=== PATIENT | female | born 1945 | race Caucasian/White ===

== ENCOUNTER 2017-11-13 02:26 | Inpatient (IN) | payer MEDICARE, BC ==
[~2017-11-13] VITALS: Ht 162.6 cm; Wt 96.2 kg
[2017-11-13] MEDS ORDERED: MAG HYDROX/AL HYDROX/SIMETH 30 ML UDC PO PRN (03:00)
[2017-11-13] MEDS ORDERED: MAGNESIUM HYDROXIDE 30 ML UDC PO PRN (03:00)
[2017-11-13] MEDS ORDERED: ACETAMINOPHEN 325 MG TABLET PO PRN (03:00)
[2017-11-13] MEDS ORDERED: FLUR15CA14 (03:14)
[2017-11-13] MEDS ORDERED: AMOX500C2 (03:14)
[2017-11-13] MEDS ORDERED: ARIP5TAB20 PO (03:14)
[2017-11-13] MEDS ORDERED: EZET10TA27 PO (03:14)
[2017-11-13] MEDS ORDERED: CIPR500T5 (03:14)
[2017-11-13] MEDS ORDERED: LEVO50TA8 PO (03:14)
[2017-11-13] MEDS ORDERED: ALBU18HF2 IH (03:14)
[2017-11-13] MEDS ORDERED: IBUP-1955 PO (03:14)
[2017-11-13] MEDS ORDERED: CYCL10TA9 PO (03:14)
[2017-11-13] MEDS ORDERED: DOXY100T2 (03:14)
[2017-11-13] MEDS ORDERED: OSEL75CA18 (03:14)
[2017-11-13] MEDS ORDERED: SITA1TAB6 PO (03:14)
[2017-11-13] MEDS ORDERED: BENZ-38 PO (03:14)
[2017-11-13] MEDS ORDERED: METF500T4 PO (03:15)
[2017-11-13 04:13] VITALS: BP 138/74
[2017-11-13] MEDS ORDERED: LORAZEPAM 0.5 MG TABLET PO PRN (07:00)
[2017-11-13 07:31] LABS: ALANINE AMINOTRANSFERASE 46 U/L (12-78); ALBUMIN 3.8 g/dL (3.4-5.0); ALKALINE PHOSPHATASE 84 U/L (46-116); ASPARTATE AMINOTRANSFERASE 34 U/L (15-37); BILIRUBIN,TOTAL 0.6 mg/dL (0.2-1.0); CALCIUM, SERUM 9.1 mg/dL (8.5-10.1); CARBON DIOXIDE 23 mmol/L (21-32); CHLORIDE 101 mmol/L (98-107); CREATININE 0.7 mg/dL (0.6-1.3); GLUCOSE 131 mg/dL (74-106); POTASSIUM 4.2 mmol/L (3.5-5.1); SODIUM SERUM 137 mmol/L (136-145); TOTAL PROTEIN, SERUM 7.9 g/dL (6.4-8.2); UREA NITROGEN, BLOOD 12 mg/dL (7-18)
[2017-11-13 08:00] VITALS: BP 139/86
[2017-11-13] MEDS ORDERED: DEXTROSE 50%-WATER 50 ML DISP.SYRIN IV PRN (11:30)
[2017-11-13] MEDS: BLOOD SUGAR DIAGNOSTIC 1 EACH STRIP VI SCH ×3 (11:45→21:49)
[2017-11-13] MEDS: CEPHALEXIN MONOHYDRATE 250 MG CAPSULE PO SCH ×2 (12:27→17:20)
[2017-11-13] MEDS: INSULIN REGULAR, HUMAN 100 UNIT/ML 3 ML VIAL SQ PRN ×2 (12:53→17:16)
[2017-11-13] MEDS ORDERED: ALBUTEROL FS 2.5 MG/3 ML VIAL.NEB NEB PRN (13:30)
[2017-11-13 16:00] VITALS: BP 164/94
[2017-11-13] MEDS: METFORMIN 500 MG TABLET PO SCH (16:48)
[2017-11-13 20:00] VITALS: BP 140/75
[2017-11-13] MEDS: ARIPIPRAZOLE 5 MG TABLET PO SCH (21:48)
[2017-11-13] MEDS: TEMAZEPAM 7.5 MG CAPSULE PO PRN (21:49)
[2017-11-13] MEDS: *INSULIN REGULAR(HUMULIN R)HUM 100 UNIT/ML VIAL SQ PRN (21:51)
[2017-11-14] MEDS: CEPHALEXIN MONOHYDRATE 250 MG CAPSULE PO SCH ×5 (00:05→23:46)
[2017-11-14 07:26] LABS: CREATININE 0.6 mg/dL (0.6-1.3)
[2017-11-14] MEDS: BLOOD SUGAR DIAGNOSTIC 1 EACH STRIP VI SCH ×4 (07:53→22:29)
[2017-11-14 07:54] LABS: CHOLESTEROL 187 mg/dL (<200); HDL CHOLESTEROL 71 mg/dL (40-60); LDL 104 mg/dL (0-99); TRIGLYCERIDES 113 mg/dL (30-150)
[2017-11-14 08:27] VITALS: BP 138/79
[2017-11-14] MEDS: LEVOTHYROXINE SODIUM 50 MCG TABLET PO SCH (08:51)
[2017-11-14] MEDS: EZETIMIBE 10 MG TABLET PO SCH (08:51)
[2017-11-14] MEDS: METFORMIN 500 MG TABLET PO SCH ×2 (08:52→16:28)
[2017-11-14] MEDS: INSULIN REGULAR, HUMAN 100 UNIT/ML 3 ML VIAL SQ PRN ×4 (08:58→22:31)
[2017-11-14 15:22] VITALS: BP 151/88
[2017-11-14 20:00] VITALS: BP 168/92
[2017-11-14] MEDS: IBUPROFEN 600 MG TABLET PO PRN (20:12)
[2017-11-14] MEDS: ARIPIPRAZOLE 5 MG TABLET PO SCH (21:47)
[2017-11-14] MEDS: TEMAZEPAM 7.5 MG CAPSULE PO PRN (21:48)
[2017-11-15] MEDS: CEPHALEXIN MONOHYDRATE 250 MG CAPSULE PO SCH ×4 (05:21→23:47)
[2017-11-15] MEDS: IBUPROFEN 600 MG TABLET PO PRN ×2 (05:22→20:31)
[2017-11-15] MEDS: LEVOTHYROXINE SODIUM 50 MCG TABLET PO SCH (07:30)
[2017-11-15] MEDS: BLOOD SUGAR DIAGNOSTIC 1 EACH STRIP VI SCH ×4 (07:37→23:47)
[2017-11-15] MEDS: INSULIN REGULAR, HUMAN 100 UNIT/ML 3 ML VIAL SQ PRN (07:41)
[2017-11-15 08:00] VITALS: BP 167/85
[2017-11-15] MEDS: METFORMIN 500 MG TABLET PO SCH ×2 (09:03→16:22)
[2017-11-15] MEDS: EZETIMIBE 10 MG TABLET PO SCH (09:03)
[2017-11-15 16:00] VITALS: BP 140/87
[2017-11-15 20:00] VITALS: BP 140/104
[2017-11-15] MEDS: ARIPIPRAZOLE 5 MG TABLET PO SCH (21:00)
[2017-11-15] MEDS: TEMAZEPAM 7.5 MG CAPSULE PO PRN (21:00)
[2017-11-16] MEDS: CEPHALEXIN MONOHYDRATE 250 MG CAPSULE PO SCH ×3 (06:36→17:05)
[2017-11-16 08:00] VITALS: BP 162/81
[2017-11-16] MEDS: BLOOD SUGAR DIAGNOSTIC 1 EACH STRIP VI SCH ×4 (08:29→22:26)
[2017-11-16] MEDS: LEVOTHYROXINE SODIUM 50 MCG TABLET PO SCH (08:29)
[2017-11-16] MEDS: METFORMIN 500 MG TABLET PO SCH ×2 (08:29→16:19)
[2017-11-16] MEDS: EZETIMIBE 10 MG TABLET PO SCH (08:29)
[2017-11-16 16:00] VITALS: BP 134/79
[2017-11-16 20:10] VITALS: BP 127/68
[2017-11-16] MEDS: ARIPIPRAZOLE 5 MG TABLET PO SCH (21:33)
[2017-11-16] MEDS: INSULIN REGULAR, HUMAN 100 UNIT/ML 3 ML VIAL SQ PRN (22:25)
[2017-11-17] MEDS: CEPHALEXIN MONOHYDRATE 250 MG CAPSULE PO SCH ×2 (00:25→06:03)
[2017-11-17 08:00] VITALS: BP 150/66
[2017-11-17] MEDS: EZETIMIBE 10 MG TABLET PO SCH (08:22)
[2017-11-17] MEDS: METFORMIN 500 MG TABLET PO SCH ×2 (08:22→16:46)
[2017-11-17] MEDS: LEVOTHYROXINE SODIUM 50 MCG TABLET PO SCH (08:22)
[2017-11-17] MEDS: BLOOD SUGAR DIAGNOSTIC 1 EACH STRIP VI SCH ×4 (08:22→21:44)
[2017-11-17] MEDS ORDERED: LORAZEPAM 0.5 MG TABLET PO PRN (09:30)
[2017-11-17 13:31] VITALS: BP 165/83
[2017-11-17] MEDS ORDERED: IBUPROFEN 600 MG TABLET PO PRN (14:00)
[2017-11-17] MEDS ORDERED: IV NS 0.9% 1,000 ML IV PRN (14:00)
[2017-11-17 15:29] LABS: EOSINOPHILS % (AUTO) 0.1 % (0.0-6.0); HEMATOCRIT 40 % (33-45); HEMOGLOBIN 13.7 g/dL (11.5-14.8); LYMPHOCYTES # (AUTO) 1.1 /CMM (0.8-4.8); MEAN CORPUSCULAR HEMOGLOBIN 29 PG (26.0-33.0); MEAN CORPUSCULAR HGB CONC 34 g/dl (31.0-36.0); MEAN CORPUSCULAR VOLUME 84 fL (82-100); MONOCYTES # (AUTO) 0.8 /CMM (0.1-1.30); MONOCYTES % (AUTO) 7.2 % (2.0-12.0); NEUTROPHILS % (AUTO) 82.7 % (43.0-81.0); PLATELET COUNT (AUTO) 291 /CMM (150-450); RDW COEFFICIENT OF VARIATION 14.9 (11.5-15.0); RED BLOOD CELL COUNT(AUTO) 4.76 MIL/uL (4.0-5.2); WHITE BLOOD COUNT (AUTO) 10.9 K/uL (4.3-11.0)
[2017-11-17 15:35] VITALS: BP 125/73
[2017-11-17 16:00] VITALS: BP 125/73
[2017-11-17 16:29] LABS: ALANINE AMINOTRANSFERASE 50 U/L (12-78); ALBUMIN 3.6 g/dL (3.4-5.0); ALKALINE PHOSPHATASE 95 U/L (46-116); ASPARTATE AMINOTRANSFERASE 43 U/L (15-37); BILIRUBIN,TOTAL 0.6 mg/dL (0.2-1.0); CALCIUM, SERUM 9.3 mg/dL (8.5-10.1); CARBON DIOXIDE 20 mmol/L (21-32); CHLORIDE 91 mmol/L (98-107); CREATININE 0.9 mg/dL (0.6-1.3); GLUCOSE 147 mg/dL (74-106); PHOSPHORUS 4.3 mg/dL (2.5-4.9); POTASSIUM 4.2 mmol/L (3.5-5.1); SODIUM SERUM 124 mmol/L (136-145); TOTAL PROTEIN, SERUM 7.9 g/dL (6.4-8.2); UREA NITROGEN, BLOOD 20 mg/dL (7-18)
[2017-11-17 16:34] LABS: APPEARANCE,URINE SL CLOUDY (CLEAR); BILIRUBIN,URINE NEGATIVE (NEGATIVE); BLOOD, URINE NEGATIVE Ery/uL (NEGATIVE); COLOR,URINE YELLOW (YELLOW); KETONES,URINE TRACE (NEGATIVE); LEUKOCYTE ESTERASE ,URINE NEGATIVE (NEGATIVE); NITRITE, URINE NEGATIVE (NEGATIVE); PROTEIN,URINE NEGATIVE (NEGATIVE); UGLUCOSE NEGATIVE (NEGATIVE); UROBILINOGEN,URINE 0.2 EU/dL (0.2)
[2017-11-17] MEDS: ARIPIPRAZOLE 5 MG TABLET PO SCH (16:46)
[2017-11-17 16:50] LABS: BACTERIA,URINE None seen /HPF (None Seen); RBC,URINE 0-2 /HPF (0-2); SQUAMOUS EPITHELIAL CELL,UR Few /HPF (None Seen); WBC,URINE 0-2 /HPF (0-3)
[2017-11-17 19:39] VITALS: BP 114/80
[2017-11-17] MEDS: *INSULIN REGULAR(HUMULIN R)HUM 100 UNIT/ML VIAL SQ PRN (21:46)
[2017-11-18] MEDS: LEVOTHYROXINE SODIUM 50 MCG TABLET PO SCH (07:30)
[2017-11-18] MEDS: BLOOD SUGAR DIAGNOSTIC 1 EACH STRIP VI SCH ×3 (07:30→18:16)
[2017-11-18 08:00] VITALS: BP 158/78
[2017-11-18] MEDS: BOOST GLUCOSE CONTROL VANILLA 237 ML BOX PO SCH ×2 (08:00→17:00)
[2017-11-18] MEDS: EZETIMIBE 10 MG TABLET PO SCH (09:00)
[2017-11-18] MEDS: METFORMIN 500 MG TABLET PO SCH ×2 (09:00→17:00)
[2017-11-18] MEDS: ARIPIPRAZOLE 5 MG TABLET PO SCH ×2 (09:00→17:00)
[2017-11-18] MEDS: INSULIN REGULAR, HUMAN 100 UNIT/ML 3 ML VIAL SQ PRN ×3 (10:04→18:17)
[2017-11-18 16:00] VITALS: BP 113/58
[2017-11-18] MEDS ORDERED: LORAZEPAM 0.5 MG TABLET PO SCH (16:00)
[2017-11-18] MEDS ORDERED: LACTULOSE 10 G/15 ML UDC (PYXIS) PO PRN (16:30)
[2017-11-18] MEDS ORDERED: BISACODYL SUPP (10 MG) 10 MG/SUPP.RECT SUPP.RECT RC PRN (16:30)
[2017-11-18] MEDS ORDERED: IV NS 0.9% 1,000 ML IV PRN ×3 (16:30→19:00)
[2017-11-18] MEDS ORDERED: AZITHROMYCIN 250 MG TABLET PO ONE (17:00)
[2017-11-18] MEDS ORDERED: DOXYCYCLINE HYCLATE (100 MG) 100 MG TABLET PO SCH (17:00)
[2017-11-18 17:51] LABS: ABG BASE EXCESS -8.2 mmol/L; ABG OXYGEN SATURATION 96.4 % (92.0-98.5); ABG PCO2 29.1 mmHg (35.0-45.0); ABG PH 7.354 (7.350-7.450); AaDO2 92.1 mmHg; COHb 0.6 % (0.5-1.5); MetHb 0.3 % (0.0-1.5); O2Hb 95.5 % (94.0-97.0); SITE, ABG Left Radial; VENT MODE, BG N/C
[2017-11-18 18:48] LABS: BASOPHILS % (AUTO) 0.1 % (0.0-2.0); HEMATOCRIT 36 % (33-45); LYMPHOCYTES # (AUTO) 0.6 /CMM (0.8-4.8); MEAN CORPUSCULAR HEMOGLOBIN 29 PG (26.0-33.0); MEAN CORPUSCULAR HGB CONC 34 g/dl (31.0-36.0); MEAN CORPUSCULAR VOLUME 86 fL (82-100); MONOCYTES # (AUTO) 0.6 /CMM (0.1-1.30); MONOCYTES % (AUTO) 5.5 % (2.0-12.0); NEUTROPHILS % (AUTO) 89.4 % (43.0-81.0); PLATELET COUNT (AUTO) 190 /CMM (150-450); RDW COEFFICIENT OF VARIATION 15.1 (11.5-15.0); RED BLOOD CELL COUNT(AUTO) 4.16 MIL/uL (4.0-5.2); WHITE BLOOD COUNT (AUTO) 11.2 K/uL (4.3-11.0)
[2017-11-18 19:04] LABS: ALANINE AMINOTRANSFERASE 458 U/L (12-78); ALBUMIN 2.9 g/dL (3.4-5.0); ALKALINE PHOSPHATASE 83 U/L (46-116); ASPARTATE AMINOTRANSFERASE 449 U/L (15-37); BILIRUBIN,TOTAL 0.5 mg/dL (0.2-1.0); CALCIUM, SERUM 8.9 mg/dL (8.5-10.1); CARBON DIOXIDE 20 mmol/L (21-32); CHLORIDE 99 mmol/L (98-107); CREATININE 2.2 mg/dL (0.6-1.3); GLUCOSE 195 mg/dL (74-106); POTASSIUM 4.4 mmol/L (3.5-5.1); SODIUM SERUM 134 mmol/L (136-145); UREA NITROGEN, BLOOD 33 mg/dL (7-18)
[2017-11-18 20:21] VITALS: BP 89/64
[2017-11-18 20:23] LABS: ABG BASE EXCESS -9.2 mmol/L; ABG OXYGEN SATURATION 98.5 % (92.0-98.5); ABG PCO2 32.8 mmHg (35.0-45.0); ABG PH 7.307 (7.350-7.450); COHb 0.2 % (0.5-1.5); MetHb 0.3 % (0.0-1.5); SITE, ABG Right Brachial
[2017-11-19] MEDS ORDERED: AZITHROMYCIN 250 MG TABLET PO SCH (17:00)
== END 2017-11-18 20:51 | disposition home or self-care (01) | DRG 885 ==
LOC: GPS 02:36
PROVIDERS: ADMIT Psychiatry & Neurology Psychiatry; ATTEND Nurse Practitioner Acute Care
DX: F29 Unspecified psychosis not due to a substance or known physiological condition (principal); N17.9 Acute kidney failure, unspecified; E11.65 Type 2 diabetes mellitus with hyperglycemia; G93.40 Encephalopathy, unspecified; I95.9 Hypotension, unspecified; E87.1 Hypo-osmolality and hyponatremia; N39.0 Urinary tract infection, site not specified; E86.1 Hypovolemia; E03.9 Hypothyroidism, unspecified; Z73.6 Limitation of activities due to disability; F32.9 Major depressive disorder, single episode, unspecified; E78.5 Hyperlipidemia, unspecified; F41.9 Anxiety disorder, unspecified; J45.909 Unspecified asthma, uncomplicated; Z87.440 Personal history of urinary (tract) infections; Z79.84 Long term (current) use of oral hypoglycemic drugs
CPT/HCPCS: 36415; 36600; 70450-TC; 71045-TC; 80048-TC; 80053-TC; 80061-TC; 81000-TC; 82565-TC; 82962-TC; 83735-TC; 84100-TC; 85025-TC; 87040-TC; 87081-TC; 87086-TC; J1815; J7030

== ENCOUNTER 2017-11-18 21:15 | Inpatient (IN) | payer MEDICARE, BC ==
[~2017-11-18] VITALS: Ht 170.2 cm; Wt 101.2 kg
--- NOTE | 2017-11-18 21:00 | NUR ---
INFORMATICS DEVELOPERLEATHER LEVELER NOTES ADMITTED 74 YO FEMALE PT FROM [facility] HOLD 5250 EXP 11/29/17 WITH ACUTE ENCEPHALOPATHY AND HYPOTENSION. PT NOT RESPONDING TO VERBAL COMMANDS, ON O2 VIA N/C AT 2L/MIN. O2 SAT 96%. NO S/SX OF PAIN OR DISCOMFORT NOTED. IV SITE RT AC INTACT, PATENT. F/C IN PLACE DRAINING YELLOW COLOR URINE. SITTER AT BEDSIDE.BED LOCKED IN LOWEST POSITION. NSR 92. ATTENDED ALL NEEDS. WILL CONTINUE TO MONITOR ACCORDINGLY.
[~2017-11-18 21:15] MED LIST: ALBU18HF2 IH; AMOX500C2; ARIP5TAB20 PO; BENZ-38 PO; CYCL10TA9 PO; DOXY100T2; EZET10TA27 PO; IBUP-1955 PO; LEVO50TA8 PO; SITA1TAB6 PO
[2017-11-18] MEDS ORDERED: IV NS 0.9% 1,000 ML IV PRN (21:21)
--- NOTE | 2017-11-18 21:23 | NUR ---
rt called to pt bedside for rapid response at 1999. pt found with pale skin signs on n/c pt spo2 unable to read. pt placed on nrb 15l. pt spo2 remained in 80s. abg ordered and obtained per rapid response protocol. abg results show increased po2 and decreased hco3. pt placed on n/c 4l. pt transported to 306. pt transfer to bed in 306 pt remains on 4l n/c at this time.
[2017-11-18] MEDS ORDERED: ONDANSETRON HCL/PF 4 MG/2 ML VIAL IVP PRN (21:30)
[2017-11-18] MEDS ORDERED: ACETAMINOPHEN 650 MG/SUPP.RECT RC PRN (21:30)
[2017-11-18] MEDS ORDERED: MAG HYDROX/AL HYDROX/SIMETH 30 ML UDC PO PRN (21:30)
[2017-11-18] MEDS ORDERED: MAGNESIUM HYDROXIDE 30 ML UDC PO PRN (21:30)
[2017-11-18] MEDS ORDERED: INSULIN REGULAR, HUMAN 100 UNIT/ML 3 ML VIAL SQ PRN (22:00)
[2017-11-18] MEDS ORDERED: DEXTROSE 50%-WATER 50 ML DISP.SYRIN IV PRN (22:00)
[2017-11-18] MEDS ORDERED: ALBUTEROL FS 2.5 MG/0.5 ML VIAL.NEB NEB PRN (22:30)
[2017-11-18] MEDS ORDERED: IPRATROPIUM NEB FS 0.5 MG/2.5 ML AMPUL.NEB NEB PRN (22:30)
[2017-11-19] VITALS: BP 96/66
--- NOTE | 2017-11-19 | NUR ---
CASINO ENFORCEMENT AGENT NOTES BLOOD GLUCOSE 189, PT CURRENTLY NPO, INSULIN HELD. WILL CONTINUE TO MONITOR ACCORDINGLY.
[2017-11-19] MEDS: BLOOD SUGAR DIAGNOSTIC 1 EACH STRIP IN SCH ×2 (00:29→05:21)
[2017-11-19 04:00] VITALS: BP 101/64
--- NOTE | 2017-11-19 05:51 | NUR ---
LOADING UNIT OPERATOR POWDER CHARGING NOTE BLOOD GLUCOSE 176 PT CURRENTLY NPO INSULIN HELD AT THIS TIME. PT RESPONDING TO VERBAL STIMULI. NO S/SX OF PAIN OR DISCOMFORT NOTED. WILL CONTINUE TO MONITOR.
--- NOTE | 2017-11-19 06:14 | NUR ---
VEGETABLE SCULLION NOTES PT IN BED, AWAKE, VERBALLY RESPONSIVE, ON O2 VIA N/C RESPIRATIONS EVEN, UNLABORED, NO APPARENT DISTRESS NOTED. CURRENTLY NPO. SITTER AT BED SIDE.KEPT CLEAN AND COMFORTABLE, ATTENDED ALL NEEDS. WILL CONTINUE TO MONITOR ACCORDINGLY.
--- NOTE | 2017-11-19 06:45 | NUR ---
WENT TO THE ROOM TO MAKE A ROUND, FOUND PT IN SLIGHTLY RESPIRATORY DISTRESS, VERBALLY RESPONSIVE, SKIN WARM TO TOUCH, DRY,NORMAL SKIN COLOR, CONTINUE OM 2L O2 VIA N/C O2 SAT 92%. CALLED CHARGE NURSE TO EVALUATE THE PT, PT NOT RESPONDING VERBALLY, DID STERNUM RUB, NOT RESPONDING, COLOR IS PALE, O2SAT DROPPED TO 88%, PLACED PT ON NONREBREATHER MASK, CALLED MACHINE SPLITTER
[2017-11-19 06:46] LABS: EOSINOPHILS % (AUTO) 0.1 % (0.0-6.0); HEMATOCRIT 33 % (33-45); HEMOGLOBIN 11.4 g/dL (11.5-14.8); LYMPHOCYTES # (AUTO) 0.7 /CMM (0.8-4.8); LYMPHOCYTES % (AUTO) 8.5 % (20.0-44.0); MEAN CORPUSCULAR HEMOGLOBIN 30 PG (26.0-33.0); MEAN CORPUSCULAR HGB CONC 35 g/dl (31.0-36.0); MEAN CORPUSCULAR VOLUME 86 fL (82-100); MONOCYTES # (AUTO) 0.6 /CMM (0.1-1.30); MONOCYTES % (AUTO) 6.5 % (2.0-12.0); NEUTROPHILS # (AUTO) 7.3 /CMM (1.8-8.9); NEUTROPHILS % (AUTO) 84.9 % (43.0-81.0); PLATELET COUNT (AUTO) 142 /CMM (150-450); RDW COEFFICIENT OF VARIATION 15.3 (11.5-15.0); RED BLOOD CELL COUNT(AUTO) 3.87 MIL/uL (4.0-5.2); WHITE BLOOD COUNT (AUTO) 8.5 K/uL (4.3-11.0)
[2017-11-19 06:49] LABS: CALCIUM, SERUM 8.1 mg/dL (8.5-10.1); CARBON DIOXIDE 19 mmol/L (21-32); CHLORIDE 104 mmol/L (98-107); CREATININE 1.8 mg/dL (0.6-1.3); GLUCOSE 170 mg/dL (74-106); MAGNESIUM 2.3 mg/dL (1.8-2.4); PHOSPHORUS 5.9 mg/dL (2.5-4.9); POTASSIUM 4.9 mmol/L (3.5-5.1); SODIUM SERUM 137 mmol/L (136-145); UREA NITROGEN, BLOOD 44 mg/dL (7-18)
--- NOTE | 2017-11-19 06:51 | NUR ---
ELECTRICAL LABORATORY TECHNICIAN CAME, ICU NURSE AT BEDSIDE, NOTED HR GOING UP, PT STILL NOT RESPONDING, SHE ORDERED ABG, BURNS, WET END SUPERVISOR AT THE BEDSIDE. NOTED PT STOPPED BREATHING. CODE BLUE CALLED. AMBU BAGGED PT, CODE TEAM TOOK OVER.
--- NOTE | 2017-11-19 07:20 | NUR ---
PT HAVE A GOOD PULSE WAS INTUBATED , BAGGED PT AND TRANSFERRED TI ICU.FAMILY CALLED NO RESPONSE, LEFT A MASSAGE PT WAS CODED AND TRANSFERRED TO ICU. AWAITING TO CALL BACK.
[2017-11-19] MEDS ORDERED: NOREPINEPHRINE 8 MG in IV D5W 500 ML IV PRN (07:30)
--- NOTE | 2017-11-19 07:30 | NUR ---
Report on pt received at 07:30 code blue in progress. PEA noted at the moment. Message left for next of kin listed on the chart.
--- NOTE | 2017-11-19 07:45 | NUR ---
RN NOTE CODE BLUE IN PROGRESS FOR MORE THAN 40 MINUTES. SEE CODE BLUE NOTES FOR DETAILS. PT REMAINED PULSELESS AND APNEIC, IN PEA WITH RATE 20-30. UNABLE TO DETECT PULSE THROUGH PALPATION AND DOPPLER. PUPILS FIXED AND DILATED. PT PRONOUNCED BY TRACE BROWN. MESSAGE LEFT FOR FAMILY TO CONTACT US BY M/S RN.
[2017-11-19] MEDS ORDERED: CALCIUM CHLORIDE 1,000 MG/10 ML DISP.SYRIN IV ONE (07:57)
[2017-11-19] MEDS ORDERED: FEE EMEERGENCY 1 MIN EA MC ONE (07:57)
[2017-11-19] MEDS ORDERED: EPINEPHRINE (1:10,000) SYRINGE 1 MG/10 ML DISP.SYRIN IVP ONE (07:57)
[2017-11-19] MEDS ORDERED: DEXTROSE 50%-WATER 50 ML DISP.SYRIN IV ONE (07:57)
[2017-11-19] MEDS ORDERED: SODIUM BICARBONATE SYR 50 MEQ/50 ML DISP.SYRIN IV ONE (07:57)
[2017-11-19 08:32] VITALS: BP 150/100
--- NOTE | 2017-11-19 08:47 | NUR ---
[facility] notified. phone call completed at 8:45.
[2017-11-19] MEDS ORDERED: ROCURONIUM BROMIDE 50 MG/5 ML IV ONE (08:48)
[2017-11-19] MEDS ORDERED: ETOMIDATE 2 MG/ML VIAL IV ONE (08:48)
[2017-11-19] MEDS ORDERED: LIDOCAINE 100MG/5ML DISP SYR IV ONE (08:50)
[2017-11-19] MEDS ORDERED: AZITHROMYCIN 500 MG in IV D5W 250 ML IV SCH (09:00)
[2017-11-19] MEDS ORDERED: PANTOPRAZOLE 40 MG VIAL IV SCH (09:00)
--- NOTE | 2017-11-19 11:16 | NUR ---
Body transferred to [facility] by security, no belonging found in ICU, supervisor claims Alis was notified. She will follow up on belongings.
--- NOTE | 2017-11-19 14:56 | NUR ---
SW informed patient's partner Joel Yolanda to contact Nursing supervisor cold rolling. Joel's contact #'s: Home/ work:
== END 2017-11-19 07:45 | disposition expired | DRG 193 ==
LOC: TELE 21:15 → ICU 11-19 07:24
PROVIDERS: ADMIT Nurse Practitioner Acute Care; ATTEND Nurse Practitioner Acute Care
PROC: 5A12012 Performance of Cardiac Output, Single, Manual (ICD-10-PCS; principal; 2017-11-19)
PROC: 0BH18EZ Insertion of Endotracheal Airway into Trachea, Via Natural or Artificial Opening Endoscopic (ICD-10-PCS; 2017-11-19)
DX: J18.9 Pneumonia, unspecified organism (principal); G93.40 Encephalopathy, unspecified; N17.9 Acute kidney failure, unspecified; I95.9 Hypotension, unspecified; E11.9 Type 2 diabetes mellitus without complications; F20.2 Catatonic schizophrenia; E86.1 Hypovolemia; E03.9 Hypothyroidism, unspecified; E78.5 Hyperlipidemia, unspecified; F32.9 Major depressive disorder, single episode, unspecified; F41.9 Anxiety disorder, unspecified; I10 Essential (primary) hypertension; I25.10 Atherosclerotic heart disease of native coronary artery without angina pectoris; J45.909 Unspecified asthma, uncomplicated; Z87.440 Personal history of urinary (tract) infections; E66.9 Obesity, unspecified; Z68.34 Body mass index [BMI] 34.0-34.9, adult; R74.0 Nonspecific elevation of levels of transaminase and lactic acid dehydrogenase [LDH]; K80.20 Calculus of gallbladder without cholecystitis without obstruction; F29 Unspecified psychosis not due to a substance or known physiological condition; Z73.6 Limitation of activities due to disability
CPT/HCPCS: 36415; 80048-TC; 82962-TC; 83735-TC; 84100-TC; 85025-TC; 87081-TC; 92950-TC; J0171; J0456; J1815; J2001; J3490; J7030; J7060